=== PATIENT | male | born 1965 | race Caucasian/White ===

== ENCOUNTER → 2018-12-11 | Outpatient (CLI) | payer SELFPAY | END | disposition home or self-care (01) | LOC: PLD 07:18 → LAB SHORT 07:18 | DX: C44.41 Basal cell carcinoma of skin of scalp and neck (principal); D22.39 Melanocytic nevi of other parts of face | CPT/HCPCS: 88305 ==

== ENCOUNTER → 2021-02-22 | Outpatient (CLI) | payer SELFPAY | LOC: LAB SHORT 07:51 → PLD 07:51 | DX: C44.41 Basal cell carcinoma of skin of scalp and neck (principal); L82.1 Other seborrheic keratosis | CPT/HCPCS: 88305 ==

== ENCOUNTER 2021-05-04 06:59 | Day surgery (SDC) | payer OTHER ==
[~2021-05-04] VITALS: Ht 193 cm; Wt 95.5 kg
[~2021-05-04 06:59] MED LIST: MELA3 PO; Vitamin B Comple1 EA PO
--- NOTE | 2021-05-04 07:39 | NUR ---
History, Chart, Medications and Allergies reviewed before start of procedure. Patient confirms NPO status and agrees with scheduled surgery. Reports taking all of colon prep with clear results. Patient States Post-Procedure ride home has been arranged with his , Tanya.
--- NOTE | 2021-05-04 08:35 | NUR ---
05/04/21 0835 Nely Frank History, Chart, Medications and Allergies reviewed before start of procedure.MONITOR INTACT WITH CONTINUOUS PULSE OXIMETRY AND INTERMITTENT BP.3-LEAD EKG REVIEWED WITH PHYSICIAN PRIOR TO START OF PROCEDURE.O2 VIA N/C INTACT THROUGHOUT SEDATION/PROCEDURE. PATIENT DETERMINED TO BE ASA APPROPRIATE FOR PROPOFOL SEDATION PRIOR TO START OF PROCEDURE BY
--- NOTE | 2021-05-04 09:58 | NUR ---
Patient up to Ambulate independently. Gait steady. Discharge instructions reviewed with patient. Patient verbalizes understanding. Copy given to patient to take home. Discharged via wheelchair to private car for ride home.
== END 2021-05-04 23:18 | disposition home or self-care (01) ==
LOC: ORSCMMR 06:59
PROVIDERS: Internal Medicine Gastroenterology
PROC: 0DBN8ZX Excision of Sigmoid Colon, Via Natural or Artificial Opening Endoscopic, Diagnostic (ICD-10-PCS; principal; 2021-05-04 08:30)
PROC: 3E0H8KZ Introduction of Other Diagnostic Substance into Lower GI, Via Natural or Artificial Opening Endoscopic (ICD-10-PCS; principal; 2021-05-04 08:30)
PROC: 0DBK8ZX Excision of Ascending Colon, Via Natural or Artificial Opening Endoscopic, Diagnostic (ICD-10-PCS; principal; 2021-05-04 08:30)
DX: K62.5 Hemorrhage of anus and rectum (principal); C18.7 Malignant neoplasm of sigmoid colon; D12.2 Benign neoplasm of ascending colon; Z83.71 Family history of colonic polyps; R19.4 Change in bowel habit
CPT/HCPCS: 88305; J2704; J7120

== ENCOUNTER 2021-06-01 09:31 | Day surgery (SDC) | payer OTHER ==
[~2021-06-01] VITALS: Ht 193 cm; Wt 96.3 kg
--- NOTE | 2021-06-01 10:38 | NUR ---
Ambulatory in Day Surgery History, Chart, Medications and Allergies reviewed before start of procedure.Patient confirms NPO status and agrees with scheduled surgery. Pre-Op teaching done. Pt verbalizes understanding. Patient States Post-Procedure ride home has been arranged.
--- NOTE | 2021-06-01 11:17 | NUR ---
assumed care of patient
== END 2021-06-01 23:55 | disposition home or self-care (01) ==
LOC: ORSCMMR 09:31 → ORD 12:00 → ORSCMMR 23:55
PROVIDERS: Surgery
PROC: B543ZZA Ultrasonography of Right Jugular Veins, Guidance (ICD-10-PCS; principal; 2021-06-01 11:00)
PROC: 05HM33Z Insertion of Infusion Device into Right Internal Jugular Vein, Percutaneous Approach (ICD-10-PCS; principal; 2021-06-01 11:00)
DX: C20 Malignant neoplasm of rectum (principal)
CPT/HCPCS: 77001; C1788; J0690; J1642; J2704; J3010; J7120

== ENCOUNTER 2021-11-23 17:32 | Emergency (ER) | payer OTHER ==
[~2021-11-23] VITALS: Ht 193 cm; Wt 99.8 kg
[2021-11-23 18:34] LABS: Influenza A, PCR NEGATIVE (NEGATIVE); Influenza B, PCR NEGATIVE (NEGATIVE); Resp Syncytial Virus, PCR NEGATIVE (NEGATIVE); SARS-Cov-2 (COVID-19) PCR, MMC NEGATIVE (NEGATIVE)
== END 2021-11-23 19:50 | disposition home or self-care (01) ==
LOC: ER 17:32
PROVIDERS: Physician Assistant
DX: Z20.822 Contact with and (suspected) exposure to COVID-19 (principal); C18.9 Malignant neoplasm of colon, unspecified
CPT/HCPCS: 0241U; 99281; M0247

== ENCOUNTER → 2022-01-03 | Outpatient (CLI) | payer OTHER | END | disposition home or self-care (01) | LOC: LAB SHORT 08:13 → PLD 08:13 → LAB 08:13 | DX: D17.0 Benign lipomatous neoplasm of skin and subcutaneous tissue of head, face and neck (principal) | CPT/HCPCS: 88304; 88305 ==

== ENCOUNTER 2022-04-20 20:27 | Inpatient (IN) | payer OTHER ==
[~2022-04-20] VITALS: Ht 193 cm; Wt 99.8 kg
[2022-04-20 22:20] LABS: BASOPHILS ABSOLUTE AUTO 0.02 K/mm3 (0.00-0.23); BASOPHILS PERCENT AUTO 0 % (0-2); EOSINOPHILS ABSOLUTE AUTO 0.01 K/mm3 (0.00-0.68); EOSINOPHILS PERCENT AUTO 0 % (0-6); Hematocrit 46.2 % (37.0-53.0); Hemoglobin 16.1 g/dL (13.5-17.5); IMMATURE GRAN ABSOLUTE AUTO 0.01 K/mm3 (0.00-0.10); IMMATURE GRAN PERCENT AUTO 0 % (0-1); LYMPHOCYTES PERCENT AUTO 5 % (21-46); MONOCYTES ABSOLUTE AUTO 0.53 K/mm3 (0.16-1.47); MONOCYTES PERCENT AUTO 7 % (4-13); Mean Corpuscular HGB 28.9 pg (26.0-34.0); Mean Corpuscular HGB Conc 34.8 g/dL (31.5-36.5); Mean Corpuscular Volume 83 fL (80-100); Mean Platelet Volume 9.1 fL (9.1-12.4); NEUTROPHILS ABSOLUTE AUTO 6.95 K/mm3 (1.96-9.15); NEUTROPHILS PERCENT AUTO 88 % (41-73); Platelet Count 204 K/mm3 (150-400); RDW Coefficient Variation 13.5 % (11.7-14.2); RDW Standard Deviation 40.7 fL (35.1-46.3); Red Blood Cell Count 5.58 M/mm3 (4.30-5.90); White Blood Cell Count 7.92 K/mm3 (4.00-11.30)
[2022-04-20 22:42] LABS: Albumin, Blood 3.9 g/dL (3.4-5.0); Albumin/Globulin Ratio 1.1 (0.8-1.8); Bilirubin, Total 1.4 mg/dL (0.1-1.0); Bun/Creatinine Ratio 40.5 (12.0-20.0); Calcium, Blood 9.2 mg/dL (8.5-10.1); Creatinine, Blood 0.59 mg/dL (0.60-1.20); Globulin, Blood 3.4 g/dL (2.2-4.0); Potassium, Blood 3.7 mmol/L (3.5-5.5); Total Protein, Blood 7.3 g/dL (6.4-8.2)
[2022-04-21 05:54] LABS: Source, Urine Clean Catch
[2022-04-21 05:57] LABS: Appearance, Urine Clear (Clear); Bilirubin, Urine Neg (Neg); Blood, Urine 3+ (Neg); Color, Urine Yellow (P-Yellow); Glucose Qualitative, Urine Neg (Neg); Ketones, Urine 4+ (Neg); Leukocyte Esterase, Urine Neg (Neg); Nitrite, Urine Neg (Neg); Protein, Urine 1+ (Neg); Specific Gravity, Urine 1.015 (1.003-1.022); Urobilinogen, Urine 2+ (Normal)
[2022-04-21 06:09] LABS: Bacteria Rare /hpf; Red Blood Cells, Urine 0-2 /hpf (0-2); Squamous Epithelial Cells Few /hpf (Few); White Blood Cells, Urine 0-2 /hpf (0-5)
--- NOTE | 2022-04-21 08:00 | NUR ---
PATIENT CAME FROM ER TODAY 04/21/22 AT 0800. PATIENT IS A&OX4. HIS BP IS ELEVATED BUT OTHERWISE VS ARE WNL AND IS ON RA. PATIENT REPORTED "MY BP RUNS HIGH WHEN I'M HERE OR IN PAIN". PATIENT REPORTS 4/10 PAIN WITH NAUSEA. PATIENT HAS BEEN GIVEN IV FENT AND IV ZOFRAN. ABD IS TENDER TO TOUCH AND BOWEL TONES ARE HYPOACTIVE. PATIENT REPORTS "I HAVEN'T HAD A POOP SINCE SUNDAY". PATIENT IS NPO AT THIS TIME. HE IS RECEVING IV FLUIDS. IS AT BEDSIDE. CALL LIGHT WITHIN REACH.
[2022-04-21 11:29] LABS: SARS-Cov-2 (COVID-19) PCR, MMC NEGATIVE (NEGATIVE)
--- NOTE | 2022-04-21 11:48 | NUR ---
PATIENT AND PATIENTS ARE HEADED TO PRE-OP.
--- NOTE | 2022-04-21 12:04 | NUR ---
PT RECENTLY TO [facility] BY BED WITH OTHER STAFF. FAMILY WITH PT. History, Chart, Medications and Allergies reviewed before start of procedure.Lungs clear T/O to Auscultation. Patient confirms NPO status and agrees with scheduled surgery. Pre-Op teaching done. Pt verbalizes understanding.
--- NOTE | 2022-04-21 15:45 | NUR ---
04/21/22 1545 Sadiq Cummings 2 3/4 OSTOMY STOMA DRESSING PLACED PLACED OVER OSTOMY
--- NOTE | 2022-04-21 16:44 | NUR ---
SHIFT SUMMARY: POD 0 COLOSTOMY PATIENT IS A&OX4. PATIENT HAS A HIGH BP AND IS ON 2L NC WITH >90% OXYGEN SATS. HE DENIES PAIN AT THIS TIME. PATIENT HAS 4 DERMABOND LAP SITES THAT ARE C/D/I. HIS OSTOMY IS ON HIS LLQ OF ABD AND ALREADY HAS GAS AND SCANT AMOUNT OF RED OUTPUT. BOWEL TONES ARE MORE ACTIVE THAN BEFORE. PATIENT REPORTS "I ALREADY FEEL SO MUCH BETTER AND A LOT LESS BLOATED". DR. PUGH SAID IT WAS OKAY FOR THE PATIENT TO GET SIPS AND CHIPS. PATIENT IS LAYING IN BED WITH CALL LIGHT IN REACH. AND SISTER ARE CURRENTLY AT BEDSIDE. THE PLAN IS TO CONTINUE PAIN MANAGEMENT AND EVENTUALLY HAVE DIET BACK TO HIS NORMAL. WILL ALSO ENCOURAGE AMBULATION WHEN PATIENT IS LESS SLEEPY.
[2022-04-22 05:35] LABS: BASOPHILS ABSOLUTE AUTO 0.01 K/mm3 (0.00-0.23); BASOPHILS PERCENT AUTO 0 % (0-2); EOSINOPHILS ABSOLUTE AUTO 0.02 K/mm3 (0.00-0.68); EOSINOPHILS PERCENT AUTO 0 % (0-6); Hematocrit 39.2 % (37.0-53.0); Hemoglobin 13.3 g/dL (13.5-17.5); IMMATURE GRAN ABSOLUTE AUTO 0.01 K/mm3 (0.00-0.10); IMMATURE GRAN PERCENT AUTO 0 % (0-1); LYMPHOCYTES ABSOLUTE AUTO 0.58 K/mm3 (0.84-5.20); LYMPHOCYTES PERCENT AUTO 9 % (21-46); MONOCYTES ABSOLUTE AUTO 0.77 K/mm3 (0.16-1.47); MONOCYTES PERCENT AUTO 11 % (4-13); Mean Corpuscular HGB 28.6 pg (26.0-34.0); Mean Corpuscular HGB Conc 33.9 g/dL (31.5-36.5); Mean Corpuscular Volume 84 fL (80-100); Mean Platelet Volume 9.4 fL (9.1-12.4); NEUTROPHILS ABSOLUTE AUTO 5.35 K/mm3 (1.96-9.15); NEUTROPHILS PERCENT AUTO 80 % (41-73); Platelet Count 182 K/mm3 (150-400); RDW Coefficient Variation 13.7 % (11.7-14.2); RDW Standard Deviation 42.1 fL (35.1-46.3); Red Blood Cell Count 4.65 M/mm3 (4.30-5.90); White Blood Cell Count 6.74 K/mm3 (4.00-11.30)
[2022-04-22 06:00] LABS: Albumin/Globulin Ratio 1.1 (0.8-1.8); Bilirubin, Total 0.9 mg/dL (0.1-1.0); Calcium, Blood 8.1 mg/dL (8.5-10.1); Creatinine, Blood 0.74 mg/dL (0.60-1.20); Globulin, Blood 2.8 g/dL (2.2-4.0); Phosphorus, Blood 3.2 mg/dL (2.5-4.9); Total Protein, Blood 5.8 g/dL (6.4-8.2)
--- NOTE | 2022-04-22 07:39 | NUR ---
SUMMARY TAKING ONLY TYLENOL FOR PAIN PER PT REQUEST.INDEPENDANTLY AMBULATING. VENTING FLATUS FROM OSTOMY APPLIANCE INDEPENDANTLY WITH SCANT BLODDY DRNG ONLY.VOIDING WITHOUT DIFF. ANXIOUS FOR DISCHARGE.
--- NOTE | 2022-04-22 17:45 | NUR ---
SUMMARY PT HAS BEEN AMBULATING DOWN THE HALLS MOST OF THE DAY, TOLERATED WELL, REPORTS HAVING MINIMAL PAIN, 2-3/10, MANAGEABLE WITH TYLENOL, DENIES ANY NAUSEA, TOLERATING SIPS OF CLEAR LIQUIDS WELL, OSTOMY APPLIANCE INTACE, PT HAS BEEN EMPTYING HIS OSTOMY BAG, OSTOMY BAG DRAINING SEROSANG. DRAINAGE, NO ACUTE CHANGES THIS SHIFT.
[2022-04-23 05:27] LABS: BASOPHILS ABSOLUTE AUTO 0.03 K/mm3 (0.00-0.23); BASOPHILS PERCENT AUTO 1 % (0-2); EOSINOPHILS ABSOLUTE AUTO 0.13 K/mm3 (0.00-0.68); EOSINOPHILS PERCENT AUTO 3 % (0-6); Hematocrit 36.3 % (37.0-53.0); Hemoglobin 12.2 g/dL (13.5-17.5); IMMATURE GRAN ABSOLUTE AUTO 0.02 K/mm3 (0.00-0.10); IMMATURE GRAN PERCENT AUTO 0 % (0-1); LYMPHOCYTES ABSOLUTE AUTO 0.48 K/mm3 (0.84-5.20); LYMPHOCYTES PERCENT AUTO 10 % (21-46); MONOCYTES ABSOLUTE AUTO 0.55 K/mm3 (0.16-1.47); MONOCYTES PERCENT AUTO 12 % (4-13); Mean Corpuscular HGB 28.8 pg (26.0-34.0); Mean Corpuscular HGB Conc 33.6 g/dL (31.5-36.5); Mean Corpuscular Volume 86 fL (80-100); Mean Platelet Volume 9.3 fL (9.1-12.4); NEUTROPHILS ABSOLUTE AUTO 3.59 K/mm3 (1.96-9.15); NEUTROPHILS PERCENT AUTO 75 % (41-73); Platelet Count 170 K/mm3 (150-400); RDW Coefficient Variation 13.8 % (11.7-14.2); RDW Standard Deviation 43.1 fL (35.1-46.3); Red Blood Cell Count 4.23 M/mm3 (4.30-5.90)
[2022-04-23 05:48] LABS: Bun/Creatinine Ratio 26.8 (12.0-20.0); Calcium, Blood 7.9 mg/dL (8.5-10.1); Creatinine, Blood 0.6 mg/dL (0.60-1.20); Potassium, Blood 3.3 mmol/L (3.5-5.5)
--- NOTE | 2022-04-23 07:30 | NUR ---
SUMMARY TYLENOL FOR PAIN.PASSING FLATUS AND STOOL, TOLERATING PO.
[2022-04-23] MEDS ORDERED: Acetaminophen650 M1 PO (10:00)
[2022-04-23] MEDS ORDERED: OXYC5 PO (10:01)
[2022-04-23] MEDS ORDERED: ONDA4 PO (10:02)
[2022-04-23] MEDS ORDERED: Compro25 MG PR (10:03)
[2022-04-23] MEDS ORDERED: POTCHL20ER PO (10:03)
[2022-04-23] MEDS ORDERED: VISBIOME 112.51 EACH PO (10:04)
--- NOTE | 2022-04-23 14:44 | NUR ---
PT TOLERATED REGULAR DIET WELL, DENIES ANY NAUSEA OR ANY DISCOMFORT, OSTOMY APPLIANCE CHANGED, PT TEACHING DONE, ALSO PRESENT AT BEDSIDE, PT VERBALIZED AND DEMONSTRATED UNDERSTANDING, USED 2 3/4 IN. ROUND APPLIANCE, SUPPLIES SENT HOME WITH PT.
== END 2022-04-23 14:41 | disposition home or self-care (01) | DRG 330 ==
LOC: ER 20:27 → SURS 04-21 05:32 → ERHOLD 04-21 05:32 → SURS 04-21 08:05
PROVIDERS: Family Medicine; Student in an Organized Health Care Education/Training Program; Surgery; ADMIT Internal Medicine
PROC: 0D1N4Z4 Bypass Sigmoid Colon to Cutaneous, Percutaneous Endoscopic Approach (ICD-10-PCS; principal; 2022-04-21 13:00)
DX: C19 Malignant neoplasm of rectosigmoid junction (principal); K56.609 Unspecified intestinal obstruction, unspecified as to partial versus complete obstruction; Z20.822 Contact with and (suspected) exposure to COVID-19; R11.2 Nausea with vomiting, unspecified; Z98.890 Other specified postprocedural states; Z90.5 Acquired absence of kidney; Z92.21 Personal history of antineoplastic chemotherapy; Z92.3 Personal history of irradiation; Z79.899 Other long term (current) drug therapy
CPT/HCPCS: 36415; 74177; 80048; 80053; 81001; 83605; 83735; 84100; 85025; 93005; 93010; 94760; 96361; 96374; 96376; 99285-25; A9270; J0694; J1100; J1650; J1885; J2250; J2370; J2405; J2704; J2710; J2795; J3010; J7030; J7120; Q9967; U0004